=== PATIENT | female | born 1945 | race Caucasian/White ===

== ENCOUNTER 2018-03-25 05:48 | Inpatient (IN) | payer MEDICARE, BC ==
[2018-03-25] MEDS: LACTATED RINGER'S 1,000 ML IV* (06:45)
[2018-03-25] MEDS: CEFAZOLIN 2 GM/50 ML (PMX) 50 ML IVPB (06:46)
[2018-03-25] MEDS ORDERED: THROMBIN 5000 UNIT VIAL (07:07)
[2018-03-25] MEDS ORDERED: MIDAZOLAM 1 MG/ML 2 ML INJ (07:12)
[2018-03-25] MEDS ORDERED: hydrALAzine 20 MG INJ (08:00)
[2018-03-25] MEDS: POLYMYXIN/BACITRACIN 1L IRRIG (08:22)
[2018-03-25] MEDS: BUPIVACAINE 0.25% (MPF) 30 ML INJ (08:23)
[2018-03-25] MEDS: THROMBIN 5000 UNIT VIAL (09:02)
[2018-03-25] MEDS: GELATIN SIZE 100 SPONGE (09:02)
[2018-03-25] MEDS ORDERED: morphine 10 MG INJ (09:22)
[2018-03-25] MEDS ORDERED: GLYCOPYRROLATE 0.4 MG INJ (10:15)
[2018-03-25] MEDS ORDERED: ETOMIDATE 20 MG INJ (10:15)
[2018-03-25] MEDS ORDERED: ROCURONIUM 50 MG INJ (10:15)
[2018-03-25] MEDS ORDERED: LIDOCAINE 2% (SDV) 5 ML INJ (10:15)
[2018-03-25] MEDS ORDERED: NEOSTIGMINE 3 MG/3 ML SYRINGE (10:15)
[2018-03-25] MEDS ORDERED: ONDANSETRON 4 MG INJ (10:53)
[2018-03-25] MEDS: DEXTROSE 5%-0.45% NACL 1,000 ML IV ×2 (11:06→21:51)
[2018-03-25] MEDS ORDERED: HYDROmorphONE 0.2 MG/ML PCA (11:24)
[2018-03-25] MEDS ORDERED: TRIMETHOBENZAMIDE 100 MG/ML VIAL IM (11:30)
[2018-03-25] MEDS ORDERED: ZOLPIDEM 5 MG TAB PO (11:30)
[2018-03-25] MEDS ORDERED: DIAZEPAM 5 MG/ML SYG IM (11:30)
[2018-03-25] MEDS ORDERED: ONDANSETRON 4 MG INJ IV ×2 (11:30)
[2018-03-25] MEDS ORDERED: NALOXONE (0.4 MG/ML) INJ IV (11:30)
[2018-03-25] MEDS ORDERED: NACL 0.9% 3 ML SYG IV (11:30)
[2018-03-25] MEDS ORDERED: DIPHENHYDRAMINE 50 MG INJ IV (11:30)
[2018-03-25] MEDS ORDERED: DIPHENHYDRAMINE 50 MG CAP PO (11:30)
[2018-03-25] MEDS ORDERED: AL HYDROX/MG HYDROX/SIMETH 30 ML CUP PO (11:30)
[2018-03-25] MEDS ORDERED: DIAZEPAM 5 MG TAB PO (11:30)
[2018-03-25] MEDS ORDERED: HYDROmorphONE 1 MG/5 ML IV SYRINGE IV (11:30)
[2018-03-25] MEDS ORDERED: CEPASTAT LOZENGE MT (11:30)
[2018-03-25] MEDS ORDERED: MEPERIDINE 25 MG INJ IV (11:30)
[2018-03-25] MEDS ORDERED: BETHANECHOL 25 MG TAB PO (11:30)
[2018-03-25] MEDS ORDERED: PROCHLORPERAZINE 10 MG TAB PO (11:30)
[2018-03-25] MEDS ORDERED: HYDROCODONE/APAP (5/325) TAB PO ×2 (11:30)
[2018-03-25] MEDS ORDERED: ACETAMINOPHEN 325 MG TAB PO (11:30)
[2018-03-25] MEDS ORDERED: CEFAZOLIN 1 GM/50 ML (PMX) 50 ML IVPB (11:45)
[2018-03-25] MEDS: FENTAnyl 50 MCG/ML VIAL IV (12:00)
[2018-03-25] MEDS: CEFAZOLIN 1 GM/50 ML (PMX) 50 ML IVPB ×2 (12:02→17:34)
[2018-03-25] MEDS: HYDROmorphONE 0.2 MG/ML PCA IV (12:03)
[2018-03-25] MEDS: HYDROmorphONE 1 MG/5 ML IV SYRINGE IV (12:11)
[2018-03-25] MEDS: ATORVASTATIN 40 MG TAB PO (20:49)
[2018-03-25] MEDS: RANITIDINE 150 MG TAB PO (20:49)
[2018-03-25] MEDS ORDERED: DOCUSATE SODIUM 100 MG CAP PO (21:00)
[2018-03-26] MEDS: CEFAZOLIN 1 GM/50 ML (PMX) 50 ML IVPB ×2 (00:03→06:16)
[2018-03-26] MEDS: HYDROmorphONE 0.2 MG/ML PCA IV (01:26)
[2018-03-26 05:20] LABS: HEMATOCRIT 40.1 % (37.0-47.0); HEMOGLOBIN 12.9 g/dl (12.0-16.0)
[2018-03-26 05:55] LABS: ANION GAP 11 (8-16); BLOOD UREA NITROGEN 15 mg/dl (7-20); CALCIUM 8.3 mg/dl (8.4-10.2); CARBON DIOXIDE 28 mmol/L (21-31); CHLORIDE 105 mmol/L (97-110); CREATININE 0.76 mg/dl (0.44-1.00); GLUCOSE 147 mg/dl (70-220); POTASSIUM 4.2 mmol/L (3.5-5.1); SODIUM 140 mmol/L (135-144)
[2018-03-26] MEDS: DEXTROSE 5%-0.45% NACL 1,000 ML IV ×2 (06:48→17:06)
[2018-03-26] MEDS ORDERED: HYDROCODONE/APAP (5/325) TAB PO (08:30)
[2018-03-26] MEDS: LEVOTHYROXINE 175 MCG TAB PO (08:43)
[2018-03-26] MEDS: LISINOPRIL 20 MG TAB PO (08:44)
[2018-03-26] MEDS: RANITIDINE 150 MG TAB PO ×2 (09:00→20:18)
[2018-03-26] MEDS ORDERED: traZODone 100 MG TAB PO (09:00)
[2018-03-26] MEDS: MAGNESIUM OXIDE 400 MG TAB PO (09:00)
[2018-03-26] MEDS: MULTIVITAMINS THERAPEUTIC TAB PO (09:00)
[2018-03-26] MEDS: FERROUS SULFATE (EC) 325 MG TAB PO ×3 (09:00→20:18)
[2018-03-26] MEDS: ASCORBIC ACID 500 MG TAB PO ×2 (09:00→20:18)
[2018-03-26] MEDS: SENNA TAB PO (09:00)
[2018-03-26] MEDS: ESTRADIOL 1 MG TAB PO (09:00)
[2018-03-26] MEDS: DOCUSATE SODIUM 100 MG CAP PO ×2 (09:00→20:18)
[2018-03-26] MEDS: BETHANECHOL 25 MG TAB PO (09:48)
[2018-03-26] MEDS: HYDROCODONE/APAP (5/325) TAB PO (09:48)
[2018-03-26] MEDS: OXYCODONE/ACETAMINOPHEN (5/325) TAB PO ×4 (10:20→21:52)
[2018-03-26] MEDS ORDERED: OXYCODONE/ACETAMINOPHEN (5/325) TAB PO (10:30)
[2018-03-26] MEDS: hydrALAzine 20 MG INJ IV (15:01)
[2018-03-26] MEDS: ATORVASTATIN 40 MG TAB PO (20:18)
[2018-03-26] MEDS: traZODone 100 MG TAB PO (20:19)
[2018-03-27] MEDS: OXYCODONE/ACETAMINOPHEN (5/325) TAB PO ×3 (02:51→09:39)
[2018-03-27] MEDS: DEXTROSE 5%-0.45% NACL 1,000 ML IV (03:06)
[2018-03-27] MEDS: MULTIVITAMINS THERAPEUTIC TAB PO (08:54)
[2018-03-27] MEDS: ESTRADIOL 1 MG TAB PO (08:54)
[2018-03-27] MEDS: DOCUSATE SODIUM 100 MG CAP PO (08:55)
[2018-03-27] MEDS: MAGNESIUM OXIDE 400 MG TAB PO (08:55)
[2018-03-27] MEDS: FERROUS SULFATE (EC) 325 MG TAB PO (08:55)
[2018-03-27] MEDS: RANITIDINE 150 MG TAB PO (08:55)
[2018-03-27] MEDS: LISINOPRIL 20 MG TAB PO (08:55)
[2018-03-27] MEDS: LEVOTHYROXINE 175 MCG TAB PO (08:55)
[2018-03-27] MEDS: ASCORBIC ACID 500 MG TAB PO (08:56)
[2018-03-27] MEDS: SENNA TAB PO (09:00)
[2018-03-27] MEDS: METOPROLOL 50 MG TAB PO (09:04)
== END 2018-03-27 10:30 | disposition home or self-care (01) | DRG 520 ==
LOC: REC 05:48 → MS1 12:34
PROVIDERS: Orthopaedic Surgery
PROC: 0SB20ZZ Excision of Lumbar Vertebral Disc, Open Approach (ICD-10-PCS; principal; 2018-03-25 07:00)
PROC: 01NB0ZZ Release Lumbar Nerve, Open Approach (ICD-10-PCS; 2018-03-25 07:00)
PROC: 00BY0ZX Excision of Lumbar Spinal Cord, Open Approach, Diagnostic (ICD-10-PCS; 2018-03-25 07:00)
DX: M48.062 Spinal stenosis, lumbar region with neurogenic claudication (principal); M51.26 Other intervertebral disc displacement, lumbar region; D36.10 Benign neoplasm of peripheral nerves and autonomic nervous system, unspecified; I10 Essential (primary) hypertension; E03.9 Hypothyroidism, unspecified; E78.5 Hyperlipidemia, unspecified; F17.290 Nicotine dependence, other tobacco product, uncomplicated; K59.09 Other constipation; Z96.653 Presence of artificial knee joint, bilateral; Z96.641 Presence of right artificial hip joint; Z85.118 Personal history of other malignant neoplasm of bronchus and lung
CPT/HCPCS: 72100; 80048; 85014; 85018; 85651; 86850; 86900; 86901; 86920; 87086; 88304; 88311; 88331; 88341; 88342; 97116; 97163; 97530